=== PATIENT | male | born 1940 | race African-American/Black ===

== ENCOUNTER 2018-08-23 15:31 | Inpatient (IN) | payer OTHER, MEDICAID ==
[2018-08-23] VITALS (15 sets, daily range): BP systolic 97–160; BP diastolic 39–112
[~2018-08-23] VITALS: Ht 175.3 cm; Wt 112.5 kg
[2018-08-23] MEDS ORDERED: SODIUM CHLORIDE 0.9% 1,000 ML IV ONE (15:42)
[2018-08-23 16:06] LABS: BASOPHILS % 0.4 % (0.0-2.0); EOSINOPHILS % 0.6 % (0.0-5.0); HEMATOCRIT. 43.5 % (42.0-52.0); HEMOGLOBIN. 13.7 g/dL (14.0-18.0); LYMPHOCYTES % 15.1 % (20.0-50.0); MEAN CORPUSCULAR HEMOGLOBIN 28.1 pg (28.0-32.0); MONOCYTES % 11.6 % (2.0-8.0); NEUTROPHILS % 72.3 % (40.0-76.0); PLATELET 176 x1000/uL (130-400); RED BLOOD CELL COUNT 4.88 mill/uL (4.7-6.1); RED CELL DISTRIBUTION WIDTH 13.5 % (11.6-14.6)
[2018-08-23 16:10] LABS: BG BASE EXCESS -7.4 mmol/L (-2.0-2.0); BG BILEVEL POS AIRWAY PRESSURE ST=15/5; BG CARBOXYHEMOGLOBIN 1.9 % (0.5-1.5); BG DEOXYHEMOGLOBIN 0.9 % (0.0-5.0); BG FRACTION INSPIRED OXYGEN 40; BG HCO3 ACT 16.1 mmol/L (22.0-26.0); BG METHEMOGLOBIN 0.1 % (0.0-1.5); BG OXYGEN SATURATION 99.1 % (92.0-98.5); BG OXYHEMOGLOBIN 97.1 % (94.0-97.0); BG PCO2 27.6 mmHg (35.0-45.0); BG PH 7.383 (7.350-7.450); BG PO2 136.2 mmHg (75.0-100.0); BG PRESSURE SUPPORT 10; BG SAMPLE SITE RIGHT RADIAL; BG VENT MODE MASK - BIPAP; BG VENT RATE 20 set
[2018-08-23 16:18] LABS: CHLORIDE 91 mEq/L (98-107)
[2018-08-23 16:35] LABS: BETA HYDROXYBUTYRATE 1.1 mMol/L (0.0-0.3)
[2018-08-23] MEDS ORDERED: INSULIN REGULAR (DRIP) 100 UNITS in SODIUM CHLORIDE 0.9% 99 ML IV SCH ×2 (16:45→17:00)
[2018-08-23] MEDS ORDERED: INSULIN REGULAR (HUMULIN R) 300UNITS/3ML IV ONE (16:45)
[2018-08-23] MEDS ORDERED: ENALAPRIL 2.5MG/2ML VIAL 2ML IV ONE (17:30)
[2018-08-23] MEDS ORDERED: FUROSEMIDE 40MG/4ML VIAL IVP ONE (17:30)
[2018-08-23] MEDS ORDERED: IPRATROPIUM/ALBUTEROL 0.5-3(2.5)MG/3ML NEB INH PRN (18:00)
[2018-08-23] MEDS ORDERED: ONDANSETRON HCL 4MG/2ML INJ IV PRN (18:00)
[2018-08-23] MEDS ORDERED: INSULIN REGULAR (DRIP) 100 UNITS in SODIUM CHLORIDE 0.9% 100 ML IV SCH (18:00)
[2018-08-23 20:47] LABS: PHOSPHORUS 4.8 mg/dL (2.5-4.9)
[2018-08-23] MEDS ORDERED: DEXTROSE 50% WATER 50ML SYRINGE IV PRN ×2 (21:15)
[2018-08-23] MEDS ORDERED: IPRATROPIUM/ALBUTEROL 0.5-3(2.5)MG/3ML NEB HHN PRN (21:30)
[2018-08-23] MEDS ORDERED: DEXT 5%/0.9% NACL KCL 20MEQ/L 1,000 ML IV PRN (21:45)
[2018-08-23] MEDS ORDERED: DEXT 5%/0.9% NACL 1,000 ML IV PRN (21:45)
[2018-08-23] MEDS: BLOOD SUGAR DIAGNOSTIC STRIP TEST SCH ×2 (22:00→23:08)
[2018-08-23] MEDS ORDERED: SODIUM CHLORIDE 0.9% 1,000 ML IV SCH (22:00)
[2018-08-23] MEDS ORDERED: SODIUM CHL 0.9% + KCL 20MEQ/L 1,000 ML IV PRN (23:00)
[2018-08-23] MEDS: INSULIN REGULAR (DRIP) 100 UNITS in SODIUM CHLORIDE 0.9% 100 ML IV SCH (23:10)
[2018-08-23 23:43] LABS: INR 1.1; PROTHROMBIN TIME 11.1 sec (9.1-11.1)
[2018-08-23 23:49] LABS: CREATINE KINASE MB FRACTION 13.5 ng/mL (0.5-3.6)
[2018-08-24] VITALS (52 sets, daily range): BP systolic 90–155; BP diastolic 45–97
[2018-08-24] MEDS: BLOOD SUGAR DIAGNOSTIC STRIP TEST SCH ×15 (01:00→21:19)
[2018-08-24] MEDS: IPRATROPIUM/ALBUTEROL 0.5-3(2.5)MG/3ML NEB HHN SCH ×4 (01:48→21:09)
[2018-08-24] MEDS: INSULIN REGULAR (DRIP) 100 UNITS in SODIUM CHLORIDE 0.9% 100 ML IV SCH (04:04)
[2018-08-24] MEDS: ENOXAPARIN 120MG/0.8ML SYR SUBCUT SCH ×2 (04:17→17:07)
[2018-08-24] MEDS: METOPROLOL TARTRATE 25MG TABLET PO SCH ×2 (06:00→17:08)
[2018-08-24 06:03] LABS: BASOPHILS % 0.6 % (0.0-2.0); EOSINOPHILS % 2.8 % (0.0-5.0); HEMATOCRIT. 40.3 % (42.0-52.0); HEMOGLOBIN. 13.2 g/dL (14.0-18.0); LYMPHOCYTES % 24.3 % (20.0-50.0); MEAN CORPUSCULAR HEMOGLOBIN 28.4 pg (28.0-32.0); MEAN CORPUSCULAR VOLUME 86.7 fL (80.0-94.0); MEAN PLATELET VOLUME 9.9 fl (7.4-10.4); MONOCYTES % 12.2 % (2.0-8.0); NEUTROPHILS % 60.1 % (40.0-76.0); PLATELET 158 x1000/uL (130-400); RED BLOOD CELL COUNT 4.65 mill/uL (4.7-6.1); RED CELL DISTRIBUTION WIDTH 13.1 % (11.6-14.6)
[2018-08-24 06:33] LABS: CREATINE KINASE MB FRACTION 15.2 ng/mL (0.5-3.6)
[2018-08-24 07:35] LABS: BG BASE EXCESS -0.9 mmol/L (-2.0-2.0); BG BILEVEL POS AIRWAY PRESSURE 15/5; BG CARBOXYHEMOGLOBIN 0.9 % (0.5-1.5); BG DEOXYHEMOGLOBIN 2.6 % (0.0-5.0); BG FRACTION INSPIRED OXYGEN 30; BG HCO3 ACT 22.4 mmol/L (22.0-26.0); BG METHEMOGLOBIN 0.1 % (0.0-1.5); BG OXYGEN SATURATION 97.4 % (92.0-98.5); BG OXYHEMOGLOBIN 96.4 % (94.0-97.0); BG PCO2 33.4 mmHg (35.0-45.0); BG PH 7.445 (7.350-7.450); BG PO2 93.6 mmHg (75.0-100.0); BG SAMPLE SITE RIGHT RADIAL; BG TOTAL HEMOGLOBIN 13.5 g/dL (12.0-18.0); BG VENT MODE MASK - BIPAP
[2018-08-24] MEDS: ASPIRIN 81MG TABLET PO SCH (08:27)
[2018-08-24] MEDS: BUDESONIDE 0.5MG/2ML NEB HHN SCH ×2 (08:51→21:08)
[2018-08-24] MEDS ORDERED: INSULIN GLARGINE UD 100 UNITS/ML SYR SUBCUT SCH ×2 (11:00→22:00)
[2018-08-24] MEDS ORDERED: LIDOCAINE HCL 2% JELLY 5ML MM SCH (11:00)
[2018-08-24] MEDS ORDERED: DEXTROSE 50% WATER 50ML SYRINGE IV PRN (12:30)
[2018-08-24 13:02] LABS: *AMPHETAMINES SCREEN URINE NEGATIVE (NEGATIVE); *BARBITURATES SCREEN URINE NEGATIVE (NEGATIVE); *BENZODIAZEPINES SCREEN URINE NEGATIVE (NEGATIVE); *COCAINE SCREEN URINE NEGATIVE (NEGATIVE); CANNABINOID URINE SCREEN NEGATIVE (NEGATIVE); METHADONE URINE SCREEN NEGATIVE (NEGATIVE); OPIATES URINE SCREEN NEGATIVE (NEGATIVE); PHENCYCLIDINE URINE SCREEN NEGATIVE (NEGATIVE)
[2018-08-24 14:53] LABS: HEPATITIS B SURFACE ANTIGEN NEGATIVE
[2018-08-24 15:21] LABS: HEPATITIS B CORE AB IGM NEGATIVE
[2018-08-24 15:23] LABS: HEPATITIS A AB IGM NEGATIVE (NEGATIVE)
[2018-08-24] MEDS: INSULIN LISPRO 100 UNITS/ML SUBCUT SCH ×2 (17:07→21:20)
[2018-08-25 00:22] VITALS: BP 138/80
[2018-08-25] MEDS: IPRATROPIUM/ALBUTEROL 0.5-3(2.5)MG/3ML NEB HHN SCH ×4 (00:37→20:09)
[2018-08-25 04:00] VITALS: BP 101/74
[2018-08-25] MEDS: ENOXAPARIN 120MG/0.8ML SYR SUBCUT SCH ×2 (04:19→16:42)
[2018-08-25] MEDS: METOPROLOL TARTRATE 25MG TABLET PO SCH ×2 (05:39→17:47)
[2018-08-25] MEDS: BLOOD SUGAR DIAGNOSTIC STRIP TEST SCH ×4 (05:47→20:40)
[2018-08-25] MEDS: INSULIN LISPRO 100 UNITS/ML SUBCUT SCH ×4 (06:16→21:34)
[2018-08-25 07:02] LABS: BASOPHILS % 0.6 % (0.0-2.0); EOSINOPHILS % 3.7 % (0.0-5.0); HEMATOCRIT. 40.3 % (42.0-52.0); HEMOGLOBIN. 13.3 g/dL (14.0-18.0); LYMPHOCYTES % 22.5 % (20.0-50.0); MEAN CORPUSCULAR HEMOGLOBIN 28.8 pg (28.0-32.0); MEAN CORPUSCULAR VOLUME 87.3 fL (80.0-94.0); MEAN PLATELET VOLUME 9.9 fl (7.4-10.4); MONOCYTES % 12.5 % (2.0-8.0); NEUTROPHILS % 60.7 % (40.0-76.0); PLATELET 149 x1000/uL (130-400); RED BLOOD CELL COUNT 4.61 mill/uL (4.7-6.1); RED CELL DISTRIBUTION WIDTH 13.1 % (11.6-14.6)
[2018-08-25 07:24] LABS: CHLORIDE 104 mEq/L (98-107)
[2018-08-25 08:00] VITALS: BP 128/70
[2018-08-25] MEDS: ASPIRIN 81MG TABLET PO SCH (08:00)
[2018-08-25] MEDS: GLIMEPIRIDE 2MG TABLET PO SCH ×2 (08:00→17:54)
[2018-08-25] MEDS: LINAGLIPTIN 5MG TABLET PO SCH (08:00)
[2018-08-25 12:00] VITALS: BP 116/77
[2018-08-25] MEDS: BUDESONIDE 0.5MG/2ML NEB HHN SCH ×2 (14:33→20:08)
[2018-08-25] MEDS ORDERED: IOHEXOL-350 100 ML BOTTLE ONE (15:08)
[2018-08-25 16:00] VITALS: BP 107/71
[2018-08-25] MEDS: METFORMIN HCL 500MG TABLET PO SCH (17:54)
[2018-08-25] MEDS: METHYLPREDNISOLONE SOD SUCC 40 MG/ML VIAL IV SCH (17:54)
[2018-08-25 18:23] LABS: BG BASE EXCESS -0.2 mmol/L (-2.0-2.0); BG CARBOXYHEMOGLOBIN 1.3 % (0.5-1.5); BG DEOXYHEMOGLOBIN 3.8 % (0.0-5.0); BG FRACTION INSPIRED OXYGEN 32; BG METHEMOGLOBIN 0.2 % (0.0-1.5); BG OXYGEN SATURATION 96.1 % (92.0-98.5); BG OXYHEMOGLOBIN 94.7 % (94.0-97.0); BG PCO2 33.5 mmHg (35.0-45.0); BG PH 7.455 (7.350-7.450); BG PO2 79.3 mmHg (75.0-100.0); BG SAMPLE SITE LEFT RADIAL; BG TOTAL HEMOGLOBIN 13.8 g/dL (12.0-18.0); BG VENT MODE NASAL CANNULA
[2018-08-25] MEDS: LEVOFLOXACIN 500MG PREMIX 100 ML IV SCH (18:50)
[2018-08-25 20:00] VITALS: BP 113/72
[2018-08-25] MEDS ORDERED: TRAMADOL 50MG TABLET PO PRN (20:00)
[2018-08-25] MEDS ORDERED: MAGNESIUM HYDROXIDE 400MG/5ML 30ML UDC PO PRN (20:00)
[2018-08-25] MEDS: DOCUSATE SODIUM 100MG CAPSULE PO SCH (20:10)
[2018-08-25] MEDS: INSULIN GLARGINE UD 100 UNITS/ML SYR SUBCUT SCH (21:35)
[2018-08-25] MEDS: FAMOTIDINE 20MG/2ML VIAL IV SCH (21:42)
[2018-08-26] VITALS (8 sets, daily range): BP systolic 124–196; BP diastolic 65–120
[2018-08-26] MEDS: IPRATROPIUM/ALBUTEROL 0.5-3(2.5)MG/3ML NEB HHN SCH ×5 (00:19→20:59)
[2018-08-26] MEDS: METHYLPREDNISOLONE SOD SUCC 40 MG/ML VIAL IV SCH ×3 (00:34→18:02)
[2018-08-26] MEDS: CLONIDINE 0.1MG TABLET PO PRN ×2 (02:43→13:14)
[2018-08-26] MEDS: ENOXAPARIN 120MG/0.8ML SYR SUBCUT SCH ×2 (03:49→16:04)
[2018-08-26] MEDS: METOPROLOL TARTRATE 25MG TABLET PO SCH ×2 (06:02→18:04)
[2018-08-26] MEDS: BLOOD SUGAR DIAGNOSTIC STRIP TEST SCH ×4 (06:04→20:35)
[2018-08-26] MEDS: INSULIN LISPRO 100 UNITS/ML SUBCUT SCH ×4 (06:36→21:53)
[2018-08-26 07:27] LABS: HEMATOCRIT 42.3 % (42.0-52.0); HEMOGLOBIN 13.9 g/dL (14.0-18.0); MEAN CORPUSCULAR VOLUME 88.1 fL (80.0-94.0); PLATELET 188 x1000/uL (130-400); RED CELL DISTRIBUTION WIDTH 13.3 % (11.6-14.6)
[2018-08-26 08:01] LABS: CHLORIDE 101 mEq/L (98-107)
[2018-08-26] MEDS: BUDESONIDE 0.5MG/2ML NEB HHN SCH ×2 (08:26→21:00)
[2018-08-26 08:35] LABS: BG CARBOXYHEMOGLOBIN 0.9 % (0.5-1.5); BG DEOXYHEMOGLOBIN 2.5 % (0.0-5.0); BG FRACTION INSPIRED OXYGEN 36; BG HCO3 ACT 23.8 mmol/L (22.0-26.0); BG METHEMOGLOBIN 0.1 % (0.0-1.5); BG OXYGEN SATURATION 97.5 % (92.0-98.5); BG OXYHEMOGLOBIN 96.5 % (94.0-97.0); BG PCO2 36.2 mmHg (35.0-45.0); BG PH 7.435 (7.350-7.450); BG PO2 96.5 mmHg (75.0-100.0); BG SAMPLE SITE LEFT RADIAL; BG TOTAL HEMOGLOBIN 14.5 g/dL (12.0-18.0); BG VENT MODE NASAL CANNULA
[2018-08-26] MEDS: FAMOTIDINE 20MG/2ML VIAL IV SCH ×2 (09:15→21:35)
[2018-08-26] MEDS: ASPIRIN 81MG TABLET PO SCH (09:16)
[2018-08-26] MEDS: DOCUSATE SODIUM 100MG CAPSULE PO SCH ×2 (09:16→18:04)
[2018-08-26] MEDS: METFORMIN HCL 500MG TABLET PO SCH ×2 (09:52→18:04)
[2018-08-26] MEDS: LINAGLIPTIN 5MG TABLET PO SCH (09:52)
[2018-08-26] MEDS: GLIMEPIRIDE 2MG TABLET PO SCH ×2 (09:52→18:04)
[2018-08-26] MEDS: FUROSEMIDE 40MG/4ML VIAL IVP SCH (16:04)
[2018-08-26] MEDS: LEVOFLOXACIN 500MG PREMIX 100 ML IV SCH (18:02)
[2018-08-26] MEDS: INSULIN GLARGINE UD 100 UNITS/ML SYR SUBCUT SCH (21:54)
[2018-08-27 00:05] VITALS: BP 131/95
[2018-08-27] MEDS: METHYLPREDNISOLONE SOD SUCC 40 MG/ML VIAL IV SCH ×3 (00:14→17:40)
[2018-08-27] MEDS: IPRATROPIUM/ALBUTEROL 0.5-3(2.5)MG/3ML NEB HHN SCH ×6 (00:47→21:20)
[2018-08-27 05:00] VITALS: BP 133/78
[2018-08-27] MEDS: ENOXAPARIN 120MG/0.8ML SYR SUBCUT SCH ×3 (05:25→23:05)
[2018-08-27] MEDS: METOPROLOL TARTRATE 25MG TABLET PO SCH ×2 (05:25→17:39)
[2018-08-27] MEDS: BLOOD SUGAR DIAGNOSTIC STRIP TEST SCH ×4 (05:27→20:11)
[2018-08-27] MEDS: INSULIN LISPRO 100 UNITS/ML SUBCUT SCH ×4 (05:34→22:34)
[2018-08-27 06:57] LABS: BG BASE EXCESS 1.4 mmol/L (-2.0-2.0); BG DEOXYHEMOGLOBIN 5.1 % (0.0-5.0); BG HCO3 ACT 25.1 mmol/L (22.0-26.0); BG METHEMOGLOBIN 0.2 % (0.0-1.5); BG OXYGEN SATURATION 94.8 % (92.0-98.5); BG OXYHEMOGLOBIN 93.7 % (94.0-97.0); BG SAMPLE SITE RIGHT RADIAL; BG TOTAL HEMOGLOBIN 14.3 g/dL (12.0-18.0); BG VENT MODE ROOM AIR
[2018-08-27 08:00] VITALS: BP 134/68
[2018-08-27] MEDS: DOCUSATE SODIUM 100MG CAPSULE PO SCH ×2 (08:32→17:39)
[2018-08-27] MEDS: LINAGLIPTIN 5MG TABLET PO SCH (08:33)
[2018-08-27] MEDS: FUROSEMIDE 40MG/4ML VIAL IVP SCH (08:33)
[2018-08-27] MEDS: FAMOTIDINE 20MG/2ML VIAL IV SCH ×2 (08:33→20:33)
[2018-08-27] MEDS: METFORMIN HCL 500MG TABLET PO SCH ×2 (08:33→17:39)
[2018-08-27] MEDS: ASPIRIN 81MG TABLET PO SCH (08:33)
[2018-08-27] MEDS: GLIMEPIRIDE 2MG TABLET PO SCH ×2 (08:34→17:42)
[2018-08-27 12:00] VITALS: BP 119/55
[2018-08-27 16:00] VITALS: BP 133/80
[2018-08-27] MEDS: LEVOFLOXACIN 500MG PREMIX 100 ML IV SCH (17:42)
[2018-08-27 20:00] VITALS: BP 107/60
[2018-08-27] MEDS: INSULIN GLARGINE UD 100 UNITS/ML SYR SUBCUT SCH (22:36)
[2018-08-28] VITALS (14 sets, daily range): BP systolic 102–175; BP diastolic 53–96
[2018-08-28] MEDS: METHYLPREDNISOLONE SOD SUCC 40 MG/ML VIAL IV SCH ×3 (00:22→17:46)
[2018-08-28] MEDS: IPRATROPIUM/ALBUTEROL 0.5-3(2.5)MG/3ML NEB HHN SCH ×6 (00:38→21:07)
[2018-08-28] MEDS: BLOOD SUGAR DIAGNOSTIC STRIP TEST SCH ×4 (05:54→20:40)
[2018-08-28] MEDS: METOPROLOL TARTRATE 25MG TABLET PO SCH (06:00)
[2018-08-28] MEDS: INSULIN LISPRO 100 UNITS/ML SUBCUT SCH ×4 (06:20→20:56)
[2018-08-28] MEDS: GLIMEPIRIDE 2MG TABLET PO SCH ×2 (07:40→17:46)
[2018-08-28] MEDS: METFORMIN HCL 500MG TABLET PO SCH ×2 (07:40→17:46)
[2018-08-28] MEDS: FAMOTIDINE 20MG/2ML VIAL IV SCH ×2 (09:00→20:50)
[2018-08-28] MEDS: DOCUSATE SODIUM 100MG CAPSULE PO SCH ×2 (09:00→17:46)
[2018-08-28] MEDS: FUROSEMIDE 40MG/4ML VIAL IVP SCH (09:00)
[2018-08-28] MEDS: LINAGLIPTIN 5MG TABLET PO SCH (09:00)
[2018-08-28] MEDS: ASPIRIN 81MG TABLET PO SCH (09:00)
[2018-08-28] MEDS ORDERED: SODIUM BICARBONATE 4% (2.4MEQ) 5ML VIAL IV ONE (12:54)
[2018-08-28] MEDS ORDERED: LIDOCAINE HCL 1% 20ML VIAL (Pyxis) INJ ONE (12:55)
[2018-08-28] MEDS ORDERED: IOHEXOL-300 100 ML BOTTLE ONE (12:55)
[2018-08-28] MEDS: DILTIAZEM HCL 60MG TABLET PO SCH ×2 (14:41→21:01)
[2018-08-28] MEDS: LEVOFLOXACIN 500MG TABLET PO SCH (17:46)
[2018-08-28] MEDS: ENOXAPARIN 120MG/0.8ML SYR SUBCUT SCH (20:52)
[2018-08-28] MEDS: INSULIN GLARGINE UD 100 UNITS/ML SYR SUBCUT SCH (21:04)
[2018-08-29] MEDS: IPRATROPIUM/ALBUTEROL 0.5-3(2.5)MG/3ML NEB HHN SCH ×6 (00:30→22:00)
[2018-08-29 04:00] VITALS: BP 103/56
[2018-08-29] MEDS: DILTIAZEM HCL 60MG TABLET PO SCH ×3 (05:28→21:00)
[2018-08-29] MEDS: INSULIN LISPRO 100 UNITS/ML SUBCUT SCH ×4 (06:35→20:59)
[2018-08-29] MEDS: BLOOD SUGAR DIAGNOSTIC STRIP TEST SCH ×4 (06:35→21:06)
[2018-08-29 07:59] LABS: HEMATOCRIT 41.2 % (42.0-52.0); HEMOGLOBIN 13.6 g/dL (14.0-18.0); MEAN CORPUSCULAR HEMOGLOBIN 28.8 pg (28.0-32.0); MEAN CORPUSCULAR VOLUME 87.3 fL (80.0-94.0); PLATELET 200 x1000/uL (130-400); RED BLOOD CELL COUNT 4.72 mill/uL (4.7-6.1); RED CELL DISTRIBUTION WIDTH 13.2 % (11.6-14.6)
[2018-08-29 08:00] VITALS: BP 106/65
[2018-08-29] MEDS: DOCUSATE SODIUM 100MG CAPSULE PO SCH ×2 (09:10→17:59)
[2018-08-29] MEDS: FUROSEMIDE 40MG/4ML VIAL IVP SCH (09:10)
[2018-08-29] MEDS: METFORMIN HCL 500MG TABLET PO SCH ×2 (09:10→17:59)
[2018-08-29] MEDS: METHYLPREDNISOLONE SOD SUCC 40 MG/ML VIAL IV SCH ×2 (09:10→17:59)
[2018-08-29] MEDS: GLIMEPIRIDE 2MG TABLET PO SCH ×2 (09:10→17:59)
[2018-08-29] MEDS: LINAGLIPTIN 5MG TABLET PO SCH (09:10)
[2018-08-29] MEDS: ENOXAPARIN 120MG/0.8ML SYR SUBCUT SCH (09:10)
[2018-08-29] MEDS: FAMOTIDINE 20MG/2ML VIAL IV SCH ×2 (09:11→20:55)
[2018-08-29 09:49] LABS: CHLORIDE 101 mEq/L (98-107)
[2018-08-29 11:39] VITALS: BP 138/84
[2018-08-29 15:51] VITALS: BP 121/65
[2018-08-29] MEDS: LEVOFLOXACIN 500MG TABLET PO SCH (17:59)
[2018-08-29] MEDS: APIXABAN 5 MG TABLET PO SCH (18:01)
[2018-08-29 20:00] VITALS: BP 138/78
[2018-08-29] MEDS: INSULIN GLARGINE UD 100 UNITS/ML SYR SUBCUT SCH (21:04)
[2018-08-30] VITALS: BP 131/72
[2018-08-30] MEDS: IPRATROPIUM/ALBUTEROL 0.5-3(2.5)MG/3ML NEB HHN SCH ×4 (00:57→12:51)
[2018-08-30 04:00] VITALS: BP 121/72
[2018-08-30] MEDS: DILTIAZEM HCL 60MG TABLET PO SCH (06:23)
[2018-08-30] MEDS: BLOOD SUGAR DIAGNOSTIC STRIP TEST SCH ×2 (06:32→11:48)
[2018-08-30] MEDS: INSULIN LISPRO 100 UNITS/ML SUBCUT SCH ×2 (06:32→11:57)
[2018-08-30 08:00] VITALS: BP 117/69
[2018-08-30 08:44] LABS: MEAN CORPUSCULAR HEMOGLOBIN 28.5 pg (28.0-32.0); MEAN CORPUSCULAR VOLUME 87.5 fL (80.0-94.0); PLATELET 224 x1000/uL (130-400); RED BLOOD CELL COUNT 4.91 mill/uL (4.7-6.1); RED CELL DISTRIBUTION WIDTH 13.7 % (11.6-14.6)
[2018-08-30 08:55] LABS: CHLORIDE 100 mEq/L (98-107)
[2018-08-30] MEDS: FAMOTIDINE 20MG/2ML VIAL IV SCH (09:05)
[2018-08-30] MEDS: METHYLPREDNISOLONE SOD SUCC 40 MG/ML VIAL IV SCH (09:05)
[2018-08-30] MEDS: FUROSEMIDE 40MG/4ML VIAL IVP SCH (09:05)
[2018-08-30] MEDS: METFORMIN HCL 500MG TABLET PO SCH (09:06)
[2018-08-30] MEDS: LINAGLIPTIN 5MG TABLET PO SCH (09:06)
[2018-08-30] MEDS: DOCUSATE SODIUM 100MG CAPSULE PO SCH (09:06)
[2018-08-30] MEDS: APIXABAN 5 MG TABLET PO SCH (09:06)
[2018-08-30] MEDS: GLIMEPIRIDE 2MG TABLET PO SCH (09:06)
[2018-08-30 10:46] VITALS: BP 117/69
[2018-08-30 12:12] VITALS: BP 114/73
[2018-08-31] MEDS ORDERED: METHYLPREDNISOLONE SOD SUCC 40 MG/ML VIAL IV SCH (09:00)
== END 2018-08-30 13:25 | disposition home health service (06) | DRG 628 ==
LOC: ER 15:31 → EDBEDREQ 15:43 → EDBEDREQSVC 15:43 → EDBEDREQ 15:46 → EDBEDREQSVC 16:44 → MICUNO 17:34 → EDBEDREQ 17:36 → ENRESERV 19:29 → 8WST 08-24 23:17
PROVIDERS: ADMIT Internal Medicine; ATTEND Internal Medicine
PROC: 5A09357 Assistance with Respiratory Ventilation, Less than 24 Consecutive Hours, Continuous Positive Airway Pressure (ICD-10-PCS; principal; 2018-08-23)
PROC: 5A09357 Assistance with Respiratory Ventilation, Less than 24 Consecutive Hours, Continuous Positive Airway Pressure (ICD-10-PCS; 2018-08-24)
PROC: 5A09357 Assistance with Respiratory Ventilation, Less than 24 Consecutive Hours, Continuous Positive Airway Pressure (ICD-10-PCS; 2018-08-26)
PROC: 5A09357 Assistance with Respiratory Ventilation, Less than 24 Consecutive Hours, Continuous Positive Airway Pressure (ICD-10-PCS; 2018-08-27)
PROC: 06H03DZ Insertion of Intraluminal Device into Inferior Vena Cava, Percutaneous Approach (ICD-10-PCS; 2018-08-28)
PROC: B5191ZZ Fluoroscopy of Inferior Vena Cava using Low Osmolar Contrast (ICD-10-PCS; 2018-08-28)
PROC: B549ZZA Ultrasonography of Inferior Vena Cava, Guidance (ICD-10-PCS; 2018-08-28)
DX: E11.10 Type 2 diabetes mellitus with ketoacidosis without coma (principal); I21.4 Non-ST elevation (NSTEMI) myocardial infarction; J18.9 Pneumonia, unspecified organism; I26.99 Other pulmonary embolism without acute cor pulmonale; J96.00 Acute respiratory failure, unspecified whether with hypoxia or hypercapnia; I50.43 Acute on chronic combined systolic (congestive) and diastolic (congestive) heart failure; N17.9 Acute kidney failure, unspecified; I82.411 Acute embolism and thrombosis of right femoral vein; J44.1 Chronic obstructive pulmonary disease with (acute) exacerbation; E87.1 Hypo-osmolality and hyponatremia; J44.0 Chronic obstructive pulmonary disease with (acute) lower respiratory infection; E66.2 Morbid (severe) obesity with alveolar hypoventilation; E11.01 Type 2 diabetes mellitus with hyperosmolarity with coma; I11.0 Hypertensive heart disease with heart failure; E78.1 Pure hyperglyceridemia; D72.829 Elevated white blood cell count, unspecified; E78.5 Hyperlipidemia, unspecified; E86.0 Dehydration; E88.81 Metabolic syndrome and other insulin resistance; I27.29 Other secondary pulmonary hypertension; I27.81 Cor pulmonale (chronic); I45.10 Unspecified right bundle-branch block; N40.0 Benign prostatic hyperplasia without lower urinary tract symptoms; Z79.4 Long term (current) use of insulin; I25.2 Old myocardial infarction; Z87.891 Personal history of nicotine dependence; Z91.19 Patient's noncompliance with other medical treatment and regimen; Z68.36 Body mass index [BMI] 36.0-36.9, adult
CPT/HCPCS: 36415; 36600; 37191; 71045; 71275; 76705; 80048; 80061; 80076; 80305; 82010; 82375; 82550; 82553; 82805; 82962; 83036; 83735; 83880; 84100; 84132; 84443; 84484; 84681; 85027; 85379; 86705; 86709; 86803; 87340; 87804; 93005; 93306; 93970; 94618; 94640; 94660; 96374; 97116; 97162; 99291; C1880; J1644; J1650; J1815; J1940; J1956; J2920; J3490; J7030; J7050; J7620; J7626; Q9967; A4315

== ENCOUNTER 2020-08-16 17:10 | Inpatient (IN) | payer MEDICARE, MEDICAID ==
[~2020-08-16] VITALS: Ht 175.3 cm; Wt 113.4 kg
[2020-08-16] MEDS ORDERED: metformin (17:15)
[2020-08-16] MEDS ORDERED: lasix (17:15)
[2020-08-16] MEDS ORDERED: lisinopril (17:15)
[2020-08-16] MEDS ORDERED: SODIUM CHLORIDE 0.9% 1,000 ML IV ONE (21:00)
[2020-08-16 21:45] LABS: BASOPHILS % 0.8 % (0.0-2.0); EOSINOPHILS % 0.5 % (0.0-5.0); HEMATOCRIT. 44.4 % (42.0-52.0); HEMOGLOBIN. 14.4 g/dL (14.0-18.0); LYMPHOCYTES % 12.9 % (20.0-50.0); MEAN CORPUSCULAR HEMOGLOBIN 28.1 pg (28.0-32.0); MEAN CORPUSCULAR VOLUME 86.5 fL (80.0-94.0); MEAN PLATELET VOLUME 10.6 fl (7.4-10.4); MONOCYTES % 8.1 % (2.0-8.0); NEUTROPHILS % 77.7 % (40.0-76.0); PLATELET 227 x1000/uL (130-400); RED BLOOD CELL COUNT 5.13 mill/uL (4.7-6.1); RED CELL DISTRIBUTION WIDTH 13.3 % (11.6-14.6)
[2020-08-16 21:53] LABS: CHLORIDE 98 mEq/L (98-107)
[2020-08-16 21:55] LABS: CLARITY URINE CLOUDY (CLEAR); COLOR URINE YELLOW (YELLOW); KETONES URINE TRACE (NEGATIVE); LEUKOCYTE ESTERASE URINE 2+ (NEGATIVE); NITRITE URINE NEGATIVE (NEGATIVE); OCCULT BLOOD URINE 1+ (NEGATIVE); PROTEIN URINE 2+ (NEGATIVE); SPECIFIC GRAVITY URINE 1.024 (1.005-1.030)
[2020-08-16 22:00] LABS: BETA HYDROXYBUTYRATE 0.2 mMol/L (0.0-0.3)
[2020-08-16 22:06] LABS: INR 1.1; PROTHROMBIN TIME 11.2 sec (9.6-11.0)
[2020-08-16] MEDS ORDERED: CEFTRIAXONE 1 G PREMIX 50 ML IV SCH (22:15)
[2020-08-17] MEDS ORDERED: AZITHROMYCIN 500 MG in DEXT 5% WATER 250 ML IV ONE (07:30)
[2020-08-17] MEDS ORDERED: DEXTROSE 50% WATER 50ML SYRINGE IV PRN (12:45)
[2020-08-17] MEDS ORDERED: ALBUTEROL (0.083%) 2.5MG/3ML NEB INH PRN (12:45)
[2020-08-17] MEDS: FAMOTIDINE 20MG/2ML VIAL IV SCH (12:45)
[2020-08-17] MEDS ORDERED: HYDROCODONE/ACETAMINOPHEN 5/325MG TABLET PO PRN (13:00)
[2020-08-17] MEDS ORDERED: DIPHENHYDRAMINE 50MG/ML VIAL IV PRN (13:00)
[2020-08-17] MEDS ORDERED: DOCUSATE SODIUM 100MG CAPSULE PO PRN (13:00)
[2020-08-17 13:03] LABS: BG BASE EXCESS -0.7 mmol/L (-2.0-2.0); BG CARBOXYHEMOGLOBIN 1.6 % (0.5-1.5); BG DEOXYHEMOGLOBIN 3.9 % (0.0-5.0); BG FRACTION INSPIRED OXYGEN 21; BG HCO3 ACT 23.1 mmol/L (22.0-26.0); BG METHEMOGLOBIN 0.1 % (0.0-1.5); BG OXYHEMOGLOBIN 94.4 % (94.0-97.0); BG PCO2 35.7 mmHg (35.0-45.0); BG PH 7.428 (7.350-7.450); BG PO2 76.8 mmHg (75.0-100.0); BG SAMPLE SITE RIGHT RADIAL; BG TOTAL HEMOGLOBIN 14.9 g/dL (12.0-18.0); BG VENT MODE ROOM AIR
[2020-08-17] MEDS ORDERED: ENOXAPARIN 40MG/0.4ML SYR SUBCUT SCH (13:30)
[2020-08-17] MEDS: BLOOD SUGAR DIAGNOSTIC STRIP TEST SCH ×3 (13:35→21:00)
[2020-08-17] MEDS: INSULIN LISPRO 100 UNITS/ML SUBCUT SCH ×3 (13:48→21:00)
[2020-08-17] MEDS: LOSARTAN POTASSIUM 25 MG TABLET PO SCH (13:56)
[2020-08-17] MEDS: METFORMIN HCL 500MG TABLET PO SCH (17:00)
[2020-08-17 17:05] LABS: BASOPHILS % 0.9 % (0.0-2.0); EOSINOPHILS % 1.6 % (0.0-5.0); HEMATOCRIT. 46.8 % (42.0-52.0); HEMOGLOBIN. 15.3 g/dL (14.0-18.0); LYMPHOCYTES % 13.2 % (20.0-50.0); MEAN CORPUSCULAR HEMOGLOBIN 28.2 pg (28.0-32.0); MEAN CORPUSCULAR VOLUME 86.4 fL (80.0-94.0); MEAN PLATELET VOLUME 10.3 fl (7.4-10.4); MONOCYTES % 7.8 % (2.0-8.0); NEUTROPHILS % 76.5 % (40.0-76.0); PLATELET 247 x1000/uL (130-400); RED BLOOD CELL COUNT 5.42 mill/uL (4.7-6.1); RED CELL DISTRIBUTION WIDTH 13.3 % (11.6-14.6)
[2020-08-17 17:09] LABS: CHLORIDE 103 mEq/L (98-107)
[2020-08-17] MEDS ORDERED: ENOXAPARIN 80MG/0.8ML SYR SUBCUT NR (18:00)
[2020-08-17] MEDS ORDERED: CEFTRIAXONE 1 G PREMIX 50 ML IV SCH (21:00)
[2020-08-17 23:24] VITALS: BP 118/63
[2020-08-18] VITALS: BP 154/91
[2020-08-18] MEDS: CEFTRIAXONE 1,000 MG in DEXTROSE 5% WATER 50 ML IV SCH (00:30)
[2020-08-18 04:00] VITALS: BP 175/90
[2020-08-18] MEDS: ENOXAPARIN 120MG/0.8ML SYR SUBCUT SCH ×2 (05:55→17:08)
[2020-08-18] MEDS: BLOOD SUGAR DIAGNOSTIC STRIP TEST SCH ×4 (06:03→20:45)
[2020-08-18] MEDS: METFORMIN HCL 500MG TABLET PO SCH ×2 (06:21→17:08)
[2020-08-18] MEDS: CLONIDINE 0.1MG TABLET PO PRN ×3 (06:21→20:59)
[2020-08-18] MEDS: INSULIN LISPRO 100 UNITS/ML SUBCUT SCH ×4 (07:17→20:49)
[2020-08-18 07:21] LABS: BASOPHILS % 0.7 % (0.0-2.0); EOSINOPHILS % 2.2 % (0.0-5.0); HEMATOCRIT. 42.6 % (42.0-52.0); HEMOGLOBIN. 14.1 g/dL (14.0-18.0); LYMPHOCYTES % 11.7 % (20.0-50.0); MEAN CORPUSCULAR HEMOGLOBIN 28.7 pg (28.0-32.0); MEAN CORPUSCULAR VOLUME 86.8 fL (80.0-94.0); MEAN PLATELET VOLUME 10.8 fl (7.4-10.4); MONOCYTES % 10.7 % (2.0-8.0); NEUTROPHILS % 74.7 % (40.0-76.0); PLATELET 228 x1000/uL (130-400); RED BLOOD CELL COUNT 4.91 mill/uL (4.7-6.1); RED CELL DISTRIBUTION WIDTH 13.1 % (11.6-14.6)
[2020-08-18 07:23] LABS: CHLORIDE 99 mEq/L (98-107)
[2020-08-18 07:29] LABS: LDL CHOLESTEROL 71 mg/dL (5-100)
[2020-08-18 07:30] LABS: HDL CHOLESTEROL 29 mg/dL (40-59)
[2020-08-18 08:00] VITALS: BP 144/88
[2020-08-18] MEDS: FAMOTIDINE 20MG/2ML VIAL IV SCH (08:15)
[2020-08-18] MEDS: LOSARTAN POTASSIUM 25 MG TABLET PO SCH (08:15)
[2020-08-18] MEDS ORDERED: AZITHROMYCIN 250 MG in DEXT 5% WATER 250 ML IV SCH (09:00)
[2020-08-18 12:00] VITALS: BP 163/88
[2020-08-18 16:00] VITALS: BP 143/81
[2020-08-18 20:00] VITALS: BP 171/100
[2020-08-19] VITALS: BP 122/67
[2020-08-19] MEDS: CEFTRIAXONE 1,000 MG in DEXTROSE 5% WATER 50 ML IV SCH (00:43)
[2020-08-19 04:00] VITALS: BP 146/94
[2020-08-19] MEDS: METFORMIN HCL 500MG TABLET PO SCH ×3 (06:11→20:41)
[2020-08-19] MEDS: BLOOD SUGAR DIAGNOSTIC STRIP TEST SCH ×4 (06:12→20:41)
[2020-08-19] MEDS: ENOXAPARIN 120MG/0.8ML SYR SUBCUT SCH ×2 (06:12→17:13)
[2020-08-19 06:39] LABS: BASOPHILS % 0.8 % (0.0-2.0); EOSINOPHILS % 4.6 % (0.0-5.0); HEMATOCRIT. 44.1 % (42.0-52.0); HEMOGLOBIN. 14.5 g/dL (14.0-18.0); MEAN CORPUSCULAR HEMOGLOBIN 28.4 pg (28.0-32.0); MEAN PLATELET VOLUME 10.3 fl (7.4-10.4); NEUTROPHILS % 58.6 % (40.0-76.0); PLATELET 241 x1000/uL (130-400); RED BLOOD CELL COUNT 5.12 mill/uL (4.7-6.1); RED CELL DISTRIBUTION WIDTH 13.4 % (11.6-14.6)
[2020-08-19 06:48] LABS: CHLORIDE 103 mEq/L (98-107)
[2020-08-19] MEDS: LOSARTAN POTASSIUM 25 MG TABLET PO SCH (08:56)
[2020-08-19] MEDS: FAMOTIDINE 20MG/2ML VIAL IV SCH (08:56)
[2020-08-19] MEDS: INSULIN LISPRO 100 UNITS/ML SUBCUT SCH ×4 (08:56→20:42)
[2020-08-19 09:37] VITALS: BP 154/93
[2020-08-19] MEDS ORDERED: AZITHROMYCIN 250 MG in DEXT 5% WATER 250 ML IV SCH (10:00)
[2020-08-19 12:00] VITALS: BP 123/70
[2020-08-19] MEDS ORDERED: INSU100I28 SQ (12:36)
[2020-08-19] MEDS ORDERED: FLAS1EAC2 TP (12:36)
[2020-08-19] MEDS ORDERED: METF-414 MT (12:36)
[2020-08-19] MEDS ORDERED: LANC1COM2 MC (12:36)
[2020-08-19] MEDS ORDERED: LOSA50TA3 MT (12:36)
[2020-08-19] MEDS ORDERED: LEVO500T2 MT (12:38)
[2020-08-19 16:00] VITALS: BP 140/87
[2020-08-19] MEDS ORDERED: APIX5TAB MT (16:08)
[2020-08-19] MEDS ORDERED: FLUCONAZOLE 50MG TABLET PO NR (17:00)
[2020-08-19 20:43] VITALS: BP 155/65
[2020-08-20 00:33] VITALS: BP 133/73
[2020-08-20] MEDS: CEFTRIAXONE 1,000 MG in DEXTROSE 5% WATER 50 ML IV SCH (00:50)
[2020-08-20 04:00] VITALS: BP 118/70
[2020-08-20] MEDS: ENOXAPARIN 120MG/0.8ML SYR SUBCUT SCH (06:02)
[2020-08-20] MEDS: BLOOD SUGAR DIAGNOSTIC STRIP TEST SCH (06:30)
[2020-08-20 08:00] VITALS: BP 146/79
[2020-08-20] MEDS: FAMOTIDINE 20MG/2ML VIAL IV SCH (08:06)
[2020-08-20] MEDS: LOSARTAN POTASSIUM 25 MG TABLET PO SCH (08:06)
[2020-08-20] MEDS: METFORMIN HCL 500MG TABLET PO SCH (08:06)
[2020-08-20] MEDS: INSULIN LISPRO 100 UNITS/ML SUBCUT SCH (08:07)
[2020-08-20 10:15] VITALS: BP 146/79
== END 2020-08-20 11:34 | disposition home health service (06) | DRG 689 ==
LOC: ER 17:10 → 7EST 08-17 12:19 → EDBEDREQ 08-17 12:21 → ENRESERV 08-17 19:11 → 6WST 08-19 17:34
PROVIDERS: ADMIT Internal Medicine; ATTEND Internal Medicine
DX: N30.00 Acute cystitis without hematuria (principal); J18.9 Pneumonia, unspecified organism; J44.0 Chronic obstructive pulmonary disease with (acute) lower respiratory infection; E87.1 Hypo-osmolality and hyponatremia; E87.2 Acidosis; I82.411 Acute embolism and thrombosis of right femoral vein; E11.649 Type 2 diabetes mellitus with hypoglycemia without coma; E11.65 Type 2 diabetes mellitus with hyperglycemia; E78.5 Hyperlipidemia, unspecified; I10 Essential (primary) hypertension; Z20.828 Contact with and (suspected) exposure to other viral communicable diseases; I25.2 Old myocardial infarction; Z79.4 Long term (current) use of insulin; Z79.899 Other long term (current) drug therapy; Z95.828 Presence of other vascular implants and grafts; Z86.711 Personal history of pulmonary embolism; Z86.718 Personal history of other venous thrombosis and embolism; N40.0 Benign prostatic hyperplasia without lower urinary tract symptoms; N41.9 Inflammatory disease of prostate, unspecified; B96.89 Other specified bacterial agents as the cause of diseases classified elsewhere
CPT/HCPCS: 36415; 36600; 71045; 71275; 74176; 80048; 80053; 80061; 81003; 82010; 82375; 82805; 82962; 83036; 83605; 84153; 84484; 85025; 87106; 87426; 93005; 93970; 96361; 96365; 97116; 97162; 97165; 99285; J0456; J0696; J1650; J1815; J3490; J7030; J7060; G0103

== ENCOUNTER 2024-06-14 10:37 | Emergency (ER) | payer OTHER, MEDICAID ==
[~2024-06-14] VITALS: Ht 170.2 cm; Wt 70.0 kg
[~2024-06-14 10:37] MED LIST: APIX5TAB MT; FLAS1EAC2 TP; INSU100I28 SQ; LANC1COM2 MC; LEVO500T2 MT; LOSA-413 MT; METF-414 MT; lasix; metformin
[2024-06-14 10:39] VITALS: TEMP 97.8; O2SAT 98
[2024-06-14 11:49] LABS: HEMATOCRIT. 32.8 % (42.0-52.0); HEMOGLOBIN. 10.8 g/dL (14.0-18.0); MEAN CORPUSCULAR HEMOGLOBIN 30.3 pg (28.0-32.0); MEAN PLATELET VOLUME 10.4 fl (7.4-10.4); PLATELET 250 x1000/uL (130-400); RED BLOOD CELL COUNT 3.57 mill/uL (4.7-6.1); RED CELL DISTRIBUTION WIDTH 16.8 % (11.6-14.6)
[2024-06-14] MEDS: ONDANSETRON HCL 4MG/2ML INJ IV STA (11:50)
[2024-06-14] MEDS: SODIUM CHLORIDE 0.9% 1,000 ML IV ONE (11:50)
[2024-06-14 11:55] LABS: CHLORIDE 107 mEq/L (98-107); SODIUM 135 mEq/L (136-145)
[2024-06-14 11:56] LABS: CARBON DIOXIDE 15 mEq/L (21-32)
[2024-06-14 11:57] LABS: CALCIUM 7.9 mg/dL (8.7-10.4)
[2024-06-14 12:01] LABS: GLUCOSE 198 mg/dL (70-105); UREA NITROGEN BLOOD 14 mg/dL (9-23)
[2024-06-14 12:04] LABS: TROPONIN I HIGH SENSITIVITY 7 ng/L (3.0-53)
[2024-06-14 12:22] LABS: DIFFERENTIAL COMMENT 1
[2024-06-14 12:25] LABS: POTASSIUM 2.8 mEq/L (3.5-5.1)
[2024-06-14] MEDS ORDERED: POTASSIUM CHLORIDE 20MEQ/PACKET PO ONE (13:00)
[2024-06-14 15:12] VITALS: BP 161/85; PULSE 77; RESP 18; O2SAT 98
[2024-06-14 16:07] LABS: ANISOCYTOSIS 1+; PLATELET ESTIMATE NORMAL
== END 2024-06-14 15:43 | disposition short-term general hospital (02) ==
LOC: ER 10:37
DX: R11.2 Nausea with vomiting, unspecified (principal); R19.7 Diarrhea, unspecified; I10 Essential (primary) hypertension; E11.9 Type 2 diabetes mellitus without complications; Z79.899 Other long term (current) drug therapy
CPT/HCPCS: 99285; 74176; 76705; 71045; 80048; 83880; 85025; 84484; 36415; 93005; J7030